=== PATIENT | female | born 1950 | race Caucasian/White ===

== ENCOUNTER → 2020-02-24 | Outpatient (CLI) | payer OTHER, MEDICARE ==
[~2020-02-24] MED LIST: ATORVASTATIN CA40 MG PO; CHOLESTEROL1 GM PO; GLUCOPHAGE500 MG PO; GYNE-LOTRIMIN-745 GM TOP; HYDROCODONE-AP1 EAC6 PO; NAPROSYN500 MG PO; NORCO 5-325 TA1 EACH PO; OXYCODONE HCL 55 MG PO; SSD CREAM 1% 5050 GM TOP; ZOFRAN ODT4 MG DISSOLVE; ZOFRAN ODT4 MG PO; ZOFRAN4 MG PO
== END ==
LOC: LAB 12:22
PROVIDERS: ATTEND Family Medicine
DX: Z20.828 Contact with and (suspected) exposure to other viral communicable diseases (principal)